=== PATIENT | male | born 1955 | race Caucasian/White ===

== ENCOUNTER 2017-03-24 20:13 | Emergency (ER) | payer BC ==
[2017-03-24] MEDS ORDERED: Dexamethasone 10 MG/ML VIAL ONE (21:25)
== END 2017-03-24 21:50 | disposition home or self-care (01) ==
LOC: SCSER 20:13
DX: J02.9 Acute pharyngitis, unspecified (principal); E78.00 Pure hypercholesterolemia, unspecified; Z79.899 Other long term (current) drug therapy; Z79.82 Long term (current) use of aspirin
CPT/HCPCS: 96372; J1100

== ENCOUNTER 2017-07-17 14:11 | Outpatient (CLI) | payer BC ==
--- NOTE | 2017-07-17 15:38 | ULT ---
TESTICULAR ULTRASOUND WITH DOPPLER: Date: 07/17/17 HISTORY: Left testicular pain. COMPARISON: None. FINDINGS: Prior left epididymis removal. Left hydrocele. There is increased vascularity of left testicle, which is mildly hypoechoic relative to the right. No mass. Right epididymal head cyst is present. Right testicle measures 2.7 x 3.9 x 2.7 cm. Left testicle measures 2.9 x 3.6 x 2.9 cm. IMPRESSION: Moderate to large size left hydrocele with hypervascularity of the entire left testicle, consistent w ith orchitis. No underlying mass is appreciated. POS: [facility]
== END 2017-07-17 14:12 | disposition home or self-care (01) ==
LOC: ULT 14:11
PROVIDERS: ATTEND Family Medicine
DX: N50.812 Left testicular pain (principal); N43.3 Hydrocele, unspecified
CPT/HCPCS: 76870; 93976

== ENCOUNTER 2017-11-20 06:57 | Observation (INO) | payer BC ==
[2017-11-20 07:27] LABS: #Basophils 0.1 thou/uL (0.0-0.2); #Eosinphils 0.1 thou/uL (0.0-0.7); #Lymphocytes 1.9 thou/uL (1.20-3.40); #Monocytes 0.5 thou/uL (0.11-0.59); #Neutrophils 6.3 thou/uL (1.40-6.50); %Basophils 1.2 % (0.0-1.0); %Eosinophils 1.7 % (0.0-10.0); %Lymphocytes 20.7 % (21.0-51.0); %Monocytes 5.8 % (0.0-10.0); %Neutrophils 70.7 % (42.0-75.0); Hemoglobin 16.5 g/dL (14.0-18.0); Mean Corpuscular HGB CONC 35.2 g/dL (32.0-36.0); Mean Corpuscular Volume 79.7 fL (78.0-98.0); Mean Platelet Volume 8.1 fL (7.4-10.4); Platelet Count 282 thou/uL (130-400); RBC Distribution Width 11.1 % (11.5-14.5); Red Blood Cell (RBC) Count 5.89 mill/uL (4.70-6.10)
[2017-11-20] MEDS ORDERED: Nitroglycerin 2% Ointment 1 INCH/1 GM Packet ONE (07:27)
[2017-11-20 07:39] LABS: ALT (SGPT) 32 U/L (8-55); AST (SGOT) 18 U/L (5-34); Albumin 4.8 g/dL (3.5-5.0); Alkaline Phosphatase 105 U/L (40-150); Anion Gap 14 mmol/L (10-20); BUN (Urea Nitrogen) 11 mg/dL (8.4-25.7); Bilirubin, Total 0.6 mg/dL (0.2-1.2); CK (CPK) 164 U/L (30-200); Calc. Creatinine Clearance 0 mL/min (70-130); Carbon Dioxide 26 mmol/L (22-29); Chloride 106 mmol/L (98-107); Estimated GFR-MDRD Greater than 90; Glucose 120 mg/dL (70-105); Potassium 3.8 mmol/L (3.5-5.1); Protein, Total 7.8 g/dL (6.0-8.3); Sodium 142 mmol/L (136-145)
[2017-11-20 07:43] LABS: CKMB 1.4 ng/mL (0-6.6)
--- NOTE | 2017-11-20 08:36 | RAD ---
FRONTAL VIEW CHEST: Date: 11/20/17 INDICATION: Chest pain. FINDINGS: There is no consolidation, effusion, or pneumothorax. No free air. Cardiac silhouette is accentuated by portable technique. IMPRESSION: No focal consolidation. POS: [facility]
[2017-11-20 10:38] LABS: Troponin I Less than 0.010 ng/mL (< 0.028)
[2017-11-20 12:22] VITALS: BMI 29.2
[2017-11-20] MEDS: Nitroglycerin 2% Ointment 1 INCH/1 GM Packet TOP SCH ×2 (12:37→18:54)
[2017-11-20] MEDS ORDERED: Acetaminophen 650 MG Suppository PR PRN (12:41)
[2017-11-20] MEDS ORDERED: Acetaminophen 325 MG TAB PO PRN (12:41)
[2017-11-20] MEDS ORDERED: Nitroglycerin 0.4 MG TAB (25 Tab Bottle) PO PRN (12:41)
[2017-11-20] MEDS ORDERED: Bisacodyl 5 MG TAB PO PRN (12:41)
[2017-11-20] MEDS ORDERED: Cetirizine HCl 10 MG TAB PO PRN (12:45)
[2017-11-20] MEDS ORDERED: Non-Formulary Item 1 EACH (Azelastine/Fluticasone [Dymista Nasal Spray] 1 SPRAY) EA NARE PRN (12:45)
[2017-11-20] MEDS ORDERED: Azelastine 137 MCG/Spray 30 ML NS PRN (12:50)
[2017-11-20] MEDS ORDERED: Fluticasone Propionate Nasal Spray 16 gm Bottle NASAL PRN (12:51)
--- NOTE | 2017-11-20 13:19 | HP ---
DATE OF ADMISSION: 11/20/2017 PRIMARY CARE PROVIDER: Serenity Nichole M.D. CHIEF COMPLAINT: Chest pain. HISTORY OF PRESENT ILLNESS: Mr. Evans is a pleasant 62-year-old gentleman who was seen at [facility] on 11/20/2017 following transfer from [facility]. Over the last month, he has had multiple episodes of chest discomfort. He describes that it is in th e left parasternal region, dull, occasionally accompanied by a dull sensation on the medial aspect of the left upper arm, not accompanied by shortness of breath. He reports that it improves with eating crackers. He denies any nausea or diaphoresis accompanying the chest discomfort. He reports worryi ng about cardiac disease. He reports that the episodes last anywhere between 2-3 minutes to several hours and occurs 2 or 3 times a day. He had another episode today morning, with accompanying left up per extremity numbness and therefore went to the emergency room. He reports that currently the disco mfort is 05/09. REVIEW OF SYSTEMS: All other systems reviewed and found to be negative. PAST MEDICAL HISTORY: Right thyroid follicular adenoma, factor V Leiden deficiency, dyslipidemia, ga stroesophageal reflux disease, Zuniga's esophagus, followed by Dr. Jad Bain. PAST SURGICAL HISTORY: Appendectomy, partial thyroidectomy and sinus surgery. SOCIAL HISTORY: Occasional alcohol use, no tobacco use or recreational drug use. FAMILY HISTORY: Heart disease and sudden in his mother at age 69. ALLERGIES: RIFAMPIN and SULFA. CURRENT MEDICATIONS: Include aspirin 81 mg daily, Lipitor 10 mg daily, Dymista nasal spray 1 spray t o each naris 2 times a day as needed, cetirizine 10 mg as needed, fexofenadine 60 mg daily, fish oil 1000 mg daily, Centrum Silver Men's tablet 1 tablet daily, Prilosec 40 mg daily, Coenzyme Q10 30 mg d aily. PHYSICAL EXAMINATION: GENERAL: On examination, Mr. Evans is awake and alert, not in acute distress. VITAL SIGNS: Blood pressure is 153/86, pulse 88, respiratory rate 20 and oxygen saturation 96% on ro om air. He is afebrile. BMI is 29.3. EYES: No scleral icterus. No conjunctival pallor. ENT: Moist mucosal membranes, no oropharyngeal erythema or exudates. NECK: Supple, nontender, trachea is midline. RESPIRATORY: Accessory muscles of breathing are not active. Chest wall movements are symmetric bila terally. LUNGS: Clear to auscultation without wheeze, rhonchi or crepitations. CARDIOVASCULAR: S1 and S2 are heard, regular. Peripheral pulses palpable. No carotid bruit, no per icardial rub. ABDOMEN: Soft, nontender, bowel sounds heard, no hepatomegaly, no splenomegaly. NEUROLOGIC: Cranial nerves II-XII intact. Deep tendon reflexes 2+. SKIN: No rashes or subcutaneous nodules. MUSCULOSKELETAL: Power is 5/5 in all 4 extremities. LYMPHATIC: No cervical lymphadenopathy. PSYCHIATRIC: Normal mood, normal affect, the patient is oriented to person, place and time. LABORATORY DATA: Mr. Evans' labs and investigations were reviewed. I reviewed his electrocardiogr am, which shows normal sinus rhythm, no ST changes to suggest an acute coronary syndrome. I also rev iewed his chest x-ray, which does not show any pulmonary infiltrates. He has an unremarkable CBC, un remarkable comprehensive metabolic profile and troponin I that is negative x2. ASSESSMENT AND PLAN: Mr. Evans is a pleasant 62-year-old gentleman who was seen at [facility] on 11/20/2017. His problem list includes: 1. Chest pain: Etiology unclear, atypical for cardiac pain. We will obtain nuclear stress test to rule out cardiac etiology. We will monitor the patient on telemetry. We will also check D-dimer to rule out any pulmonary embolism. 2. Dyslipidemia: Continue statin. 3. Gastroesophageal reflux disease: Stable. 4. Zuniga's esophagitis. Stable. Many thanks for allowing me to participate in your patient's care. Please feel free to contact me wi th any questions or concerns. LEVEL OF RISK: High. LEVEL OF COMPLEXITY: High.
[2017-11-20 13:52] LABS: Troponin I Less than 0.010 ng/mL (< 0.028)
[2017-11-20] MEDS ORDERED: Iopamidol 370 76% 100 ML VIAL ONE (14:51)
--- NOTE | 2017-11-20 16:18 | CT ---
CT ARTERIOGRAM CHEST WITH IV CONTRAST AND 3D MIP IMAGIN11/20/17 HISTORY: Chest pain. Dyspnea. FINDINGS: There is good contrast opacification of the pulmonary arteries and thoracic aorta with bovine origin of the great vessels at the aortic arch. No pleural fluid, pneumothorax, or mediastinal adenopathy. IMPRESSION: No CT evidence of pulmonary embolus. POS: [facility]
[2017-11-20] MEDS ORDERED: Sodium Chloride 0.65% Nasal 44 ML BOT EA NARE PRN (20:17)
[2017-11-20] MEDS ORDERED: Atorvastatin Calcium 10 MG TAB PO SCH (21:15)
[2017-11-20] MEDS ORDERED: Loratadine 10 MG TAB PO SCH (21:15)
[2017-11-21 05:07] LABS: #Basophils 0.1 thou/uL (0.0-0.2); #Eosinphils 0.3 thou/uL (0.0-0.7); #Lymphocytes 2.7 thou/uL (1.20-3.40); #Monocytes 0.6 thou/uL (0.11-0.59); #Neutrophils 5.8 thou/uL (1.40-6.50); %Basophils 0.9 % (0.0-1.0); %Eosinophils 3.1 % (0.0-10.0); %Lymphocytes 28.7 % (21.0-51.0); %Monocytes 6.4 % (0.0-10.0); %Neutrophils 60.9 % (42.0-75.0); Mean Corpuscular HGB CONC 34.4 g/dL (32.0-36.0); Mean Corpuscular Hemoglobin 29.4 pg (27.0-31.0); Mean Corpuscular Volume 85.3 fL (78.0-98.0); Mean Platelet Volume 7.2 fL (7.4-10.4); Platelet Count 260 thou/uL (130-400); RBC Distribution Width 11.8 % (11.5-14.5); Red Blood Cell (RBC) Count 5.09 mill/uL (4.70-6.10); White Blood Cell (WBC) Count 9.5 thou/uL (4.8-10.8)
[2017-11-21 05:08] LABS: Anion Gap 15 mmol/L (10-20); BUN (Urea Nitrogen) 10 mg/dL (8.4-25.7); Calc. Creatinine Clearance 136 mL/min (70-130); Calcium 9.6 mg/dL (7.8-10.44); Carbon Dioxide 22 mmol/L (22-29); Chloride 108 mmol/L (98-107); Estimated GFR-MDRD Greater than 90; Glucose 102 mg/dL (70-105); Potassium 3.9 mmol/L (3.5-5.1); Sodium 141 mmol/L (136-145)
[2017-11-21 08:18] VITALS: BP 153/79; TEMP 97.9
[2017-11-21] MEDS ORDERED: Ubidecarenone 50 MG CAP PO SCH (09:00)
[2017-11-21] MEDS ORDERED: Aspirin 81 mg Enteric Coated Tablet PO SCH (09:00)
[2017-11-21] MEDS ORDERED: Atorvastatin Calcium 10 MG TAB PO SCH ×2 (09:00→21:00)
[2017-11-21] MEDS ORDERED: Fish Oil 1,000 MG CAP PO SCH (09:00)
[2017-11-21] MEDS ORDERED: Enoxaparin Sodium 40 MG/0.4 ML SYRINGE SC SCH (09:00)
[2017-11-21] MEDS ORDERED: Multivitamin W/ Minerals 1 TAB PO SCH (09:00)
[2017-11-21] MEDS ORDERED: Loratadine 10 MG TAB PO SCH ×2 (09:00→21:00)
--- NOTE | 2017-11-21 11:18 | NM ---
MYOCARDIAL PERFUSION SCAN WITH SPECT IMAGING: HISTORY: Chest pain, dyslipidemia. History of coronary artery disease. FINDINGS: Examination was performed using 30 mCi 99m Technetium sestamibi on the stress and 27.4 mCi on the res ting images. This shows a fairly normal distribution of the radiopharmaceutical. No signs of ischem ia or scar. WALL MOTION: There is symmetric contractility to the ventricle. LEFT VENTRICULAR EJECTION FRACTION: The calculated left ventricular ejection fraction was 77%. IMPRESSION: Unremarkable myocardial perfusion scan. POS: [facility]
--- NOTE | 2017-11-21 21:11 | DIS ---
PRIMARY CARE PROVIDER: Serenity Nichole M.D. DATE OF ADMISSION: 11/20/2017 DATE OF DISCHARGE: 11/21/2017 DISCHARGE DIAGNOSIS: Chest pain. CONDITION OF PATIENT ON THE DAY OF DISCHARGE: Stable. I assessed Mr. Evans on the day of discharg e. He denies any chest pain or shortness of breath. Vital signs are stable. S1 and S2 are heard, r egular. Lungs are clear to auscultation bilaterally. DISCHARGE MEDICATIONS: No change was made to his preadmission home medications as dictated on my his tory and physical note from 11/20/2017. HOSPITAL COURSE: Mr. Evans is a pleasant 62-year-old gentleman who was admitted to [facility] on 11/20/2017 for chest pain. He had nuclear stress test, which was unremarkable. Calculated left ventricular ejection fraction was 77%. He also had CT angiogram of the chest, whic h did not show any evidence of pulmonary embolism. 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 He has been advised to keep the a ppointment. On the day of discharge, he has an unremarkable CBC and an unremarkable Chem-7. Many thanks for allowing me to participate in your patient's care. Please feel free to contact me wi th any questions or concerns. DISCHARGE DESTINATION: Home.
== END 2017-11-21 12:24 | disposition home or self-care (01) ==
LOC: SCSER 06:57 → INTOOBSV 11:17 → 2SW 11:17
PROVIDERS: ADMIT Internal Medicine Infectious Disease; ATTEND Internal Medicine Infectious Disease
DX: R07.89 Other chest pain (principal); D68.2 Hereditary deficiency of other clotting factors; E78.5 Hyperlipidemia, unspecified; K21.9 Gastro-esophageal reflux disease without esophagitis; K22.70 Barrett's esophagus without dysplasia; E89.0 Postprocedural hypothyroidism; Z79.82 Long term (current) use of aspirin; Z79.899 Other long term (current) drug therapy; Z88.2 Allergy status to sulfonamides; Z88.1 Allergy status to other antibiotic agents
CPT/HCPCS: 36415; 71045; 71275; 78452; 80048; 80053; 82550; 82553; 84484; 85025; 85379; 93005; 93017; 94760; A9500; G0378; J1650

== ENCOUNTER 2017-12-21 08:34 | Outpatient (CLI) | payer BC ==
--- NOTE | 2017-12-21 10:27 | MRI ---
MRI CERVICAL SPINE WITHOUT CONTRAST: Multiplanar, multisequential imaging of cervical spine obtained. INDICATION: Cervical radiculopathy. Left arm pain. FINDINGS: Cervical vertebrae maintain normal height and alignment. There are mild to moderate degenerative joann nges noted. There is loss of disk space at C5-6 and C6-7. There are anterior osteophytes at these l evels with degenerative disk and end plate changes at C5-6 and C6-7. No significant spondylosis or disk bulge seen at C2-3, C3-4, or C4-5. No foraminal stenosis at any o f these levels. At C5-6, disk bulge and spondylosis flattens the thecal sac and effaces the anterior subarachnoid spa ce. No evidence of cord impingement. There is evidence of right foraminal stenosis at this level du e to facet and uncinate hypertrophy. At C6-7, disk bulge and spondylosis flatten the thecal sac and mildly efface the anterior subarachnoi d space. No cord impingement. Mild foraminal narrowing bilaterally secondary to facet and uncinate hypertrophy. At C7-T1, no significant disk bulge or spondylosis. Cervical cord signal is normal. IMPRESSION: Degenerative disk changes at C5-6 and C6-7. Mild disk bulge and spondylosis at these levels with for aminal encroachment at these levels as described above. POS: [facility]
== END 2017-12-21 08:35 | disposition home or self-care (01) ==
LOC: TBSIIMAG 08:34
PROVIDERS: ATTEND Anesthesiology Pain Medicine
DX: M51.16 Intervertebral disc disorders with radiculopathy, lumbar region (principal); M99.83 Other biomechanical lesions of lumbar region; M47.26 Other spondylosis with radiculopathy, lumbar region
CPT/HCPCS: 72141

== ENCOUNTER 2018-01-30 10:21 | Outpatient (CLI) | payer BC ==
[2018-01-30 10:58] LABS: Estimated GFR-MDRD - POC Greater than 90
[2018-01-30 11:24] LABS: #Basophils 0.1 thou/uL (0.0-0.2); #Eosinphils 0.1 thou/uL (0.0-0.7); #Monocytes 0.6 thou/uL (0.11-0.59); #Neutrophils 7.2 thou/uL (1.40-6.50); %Basophils 0.5 % (0.0-1.0); %Eosinophils 0.9 % (0.0-10.0); %Lymphocytes 19.7 % (21.0-51.0); %Monocytes 6.2 % (0.0-10.0); %Neutrophils 72.7 % (42.0-75.0); Hemoglobin 15.1 g/dL (14.0-18.0); Mean Corpuscular HGB CONC 33.2 g/dL (32.0-36.0); Mean Corpuscular Hemoglobin 28.4 pg (27.0-31.0); Mean Corpuscular Volume 85.7 fL (78.0-98.0); Mean Platelet Volume 7.3 fL (7.4-10.4); Platelet Count 279 thou/uL (130-400); RBC Distribution Width 12.1 % (11.5-14.5); Red Blood Cell (RBC) Count 5.32 mill/uL (4.70-6.10); White Blood Cell (WBC) Count 9.9 thou/uL (4.8-10.8)
--- NOTE | 2018-01-30 12:32 | CT ---
PRE AND POST CONTRAST ENHANCED CT IMAGES OF THE PELVIS: History: L02.91 Technique: Pre and post contrast enhanced CT images of the pelvis obtained. FINDINGS: Images demonstrated descending sigmoid colonic diverticula. There is an enlarged left L5 transverse process which forms a fused L5 left S1 sacral ala/transverse process. No evidence of abnormalities seen in the pre-retro sacral space. The patient has had previous surgica l clips in the pelvis. No evidence of adriana coccygeal or sacral abscess seen. Some mild posterior subc utaneous edema is seen possibly representing cellulitis at the injection site. IMPRESSION: No evidence of abscess seen. POS: [facility]
[2018-01-30] MEDS ORDERED: Iopamidol 370 76% 100 ML VIAL ONE (12:48)
== END 2018-01-30 10:22 | disposition home or self-care (01) ==
LOC: CT 10:21
PROVIDERS: ATTEND Anesthesiology Pain Medicine
DX: L02.91 Cutaneous abscess, unspecified (principal)
CPT/HCPCS: 72194; 82565; 85025

== ENCOUNTER 2018-08-09 20:33 | Emergency (ER) | payer BC ==
[2018-08-09] MEDS ORDERED: Dexamethasone 10 MG/ML VIAL ONE (21:08)
== END 2018-08-09 21:31 | disposition home or self-care (01) ==
LOC: SCSER 20:33
DX: R11.0 Nausea (principal); R09.81 Nasal congestion; T45.0X5A Adverse effect of antiallergic and antiemetic drugs, initial encounter; T38.0X5A Adverse effect of glucocorticoids and synthetic analogues, initial encounter
CPT/HCPCS: 96372; J1100